=== PATIENT | male | born 1945 | race Caucasian/White ===

== ENCOUNTER → 2019-11-25 16:41 | Outpatient (REF) | payer MEDICARE, SELFPAY | LOC: ANHLAB 16:41 | PROVIDERS: PCP Family Medicine; Visit Provider Nurse Practitioner Family | DX: C44.519 Basal cell carcinoma of skin of other part of trunk (principal) | CPT/HCPCS: 88305 ==

== ENCOUNTER → 2020-06-07 12:02 | Outpatient (REF) | payer MEDICARE, SELFPAY | LOC: ANHLAB 12:02 | PROVIDERS: PCP Family Medicine; Visit Provider Nurse Practitioner | DX: C44.319 Basal cell carcinoma of skin of other parts of face (principal) | CPT/HCPCS: 88305 ==

== ENCOUNTER → 2020-07-25 11:43 | Outpatient (REF) | payer MEDICARE, SELFPAY | LOC: ANHLAB 11:43 | PROVIDERS: PCP Family Medicine; Visit Provider Nurse Practitioner | DX: C44.319 Basal cell carcinoma of skin of other parts of face (principal) | CPT/HCPCS: 88305; 88331 ==

== ENCOUNTER → 2021-06-01 13:42 | Outpatient (REF) | payer MEDICARE, SELFPAY | LOC: ANHLAB 13:42 | PROVIDERS: PCP Family Medicine; Visit Provider Nurse Practitioner | DX: C44.219 Basal cell carcinoma of skin of left ear and external auricular canal (principal) | CPT/HCPCS: 88305 ==

== ENCOUNTER → 2021-07-10 10:30 | Outpatient (REF) | payer MEDICARE, SELFPAY | LOC: ANHLAB 10:30 | PROVIDERS: PCP Family Medicine; Visit Provider Nurse Practitioner | DX: C44.219 Basal cell carcinoma of skin of left ear and external auricular canal (principal) | CPT/HCPCS: 88305; 88331 ==

== ENCOUNTER → 2021-11-30 12:04 | Outpatient (REF) | payer MEDICARE, SELFPAY | LOC: ANHLAB 12:04 | PROVIDERS: PCP Family Medicine; Visit Provider Nurse Practitioner | DX: C44.519 Basal cell carcinoma of skin of other part of trunk (principal) | CPT/HCPCS: 88305 ==

== ENCOUNTER → 2022-01-29 10:11 | Outpatient (REF) | payer MEDICARE, SELFPAY | LOC: ANHLAB 10:11 | PROVIDERS: PCP Family Medicine; Visit Provider Nurse Practitioner | DX: C44.529 Squamous cell carcinoma of skin of other part of trunk (principal) | CPT/HCPCS: 88305; 88331 ==

== ENCOUNTER 2023-06-10 01:47 | Day surgery (SDC) | payer MEDICARE, SELFPAY ==
[2023-05-24 14:34] VITALS: BMI 28.8
--- NOTE | 2023-06-07 10:41 | SUR.PREOP ---
Patient called regarding upcoming procedure. Reviewed preop instructions, appointment times, and procedure prep.
[2023-06-10 13:05] VITALS: BP 125/70; PULSE 77; RESP 16; TEMP 36.6; O2SAT 98; BMI 27.4
[2023-06-10] MEDS: LACTATED RINGERS 1,000 ML 150 ML IV CONT (13:40)
--- NOTE | 2023-06-10 13:43 | PM.HPGS ---
History of Present Illness History of Present Illness Consent: Risks, benefits, and alternatives have been discussed and questions answered. Patient agrees to proceed with procedure. Chief complaint: Hx colon polyps Narrative: Ashu Motta is a 77 year old male referred for colon cancer screening. Review of Systems Review of Systems: All systems reviewed & are unremarkable except as noted in HPI and below PMFSH Past Medical History Medical History Elevated prostate specific antigen (PSA) History of basal cell carcinoma of skin 04/2017 Hyperlipidemia Hypertension Prediabetes Surgical History Surgical History H/O vasectomy 05/1979 History of Mohs micrographic surgery for skin cancer Family History Family History Mother Cancer Grandparent Diabetes mellitus Heart disease Social History Social History Smoking status: Never smoker Tobacco type: pipe Alcohol intake: current Drinks per week: 14 Substance use type: does not use Living arrangements: other Additional living arrangements comments: with sp Meds Home Medications and Allergies Home Medications Medication Instructions Recorded Confirmed Type lisinopril 10 mg tablet 10 mg PO DAILY 07/08/19 06/10/23 History simvastatin 40 mg tablet 40 mg PO DAILY 07/08/19 06/10/23 History aspirin 81 mg tablet,delayed 81 mg PO DAILY #30 tabs 04/02/23 06/10/23 Rx release tjpunwya-sav-dggpw acid 0.4 1 tablet PO DAILY #30 tabs 04/02/23 06/10/23 Rx mg-lycopene 300 mcg-lutein 250 mcg tablet (Complete Multivitamin Adult 50 Plus) omega 3-hww-keb-fish oil 1,200 mg 1 cap PO .twice daily #60 caps 04/02/23 06/10/23 Rx (144 mg-216 mg) capsule (Fish Oil) psyllium husk 0.4 gram capsule 0.4 g PO DAILY #60 caps 04/02/23 06/10/23 Rx (Metamucil) Allergies Allergy/AdvReac Type Severity Reaction Status Date / Time No Known Allergies Allergy Mild Verified 06/10/23 13:13 Vital Signs Vital Signs - 24 hr 06/10/23 13:05 Temperature 36.6 C Pulse Rate 77 Respiratory Rate 16 Blood Pressure 125/70 Pulse Oximetry 98 Oxygen Delivery Room Air Exam Resp: Auscultation: clear to auscultation bilaterally Cardio: Rate: regular rate Rhythm: regular rhythm GI: GI Palp: Yes Soft to palpation and No Tenderness to palpation present (GI) Assessment and Plan Assessment and plan (1) Colon cancer screening: Code(s): Z12.11 - Encounter for screening for malignant neoplasm of colon Status: Acute Assessment and Plan: Colonoscopy with possible biopsy or polypectomy or cautery or injection of substances.
--- NOTE | 2023-06-10 13:44 | P.PNAN_ITS ---
Anes - Initial Pre Proc Eval Procedure: Operation Date: 06/10/23 14:30 Proposed Procedures p Colonoscopy - Sedrick Hilliard MD Date/Time: 06/10/23 13:44 Surgeon: Sedrick Hilliard MD Pre Op Diagnosis: Hx colon polyps Patient Data Age: 77 Gender: M Height: 1.78 m Weight: 86.8 kg Last Vital Signs Temp 97.9 F 06/10/23 13:05 Pulse 77 06/10/23 13:05 Resp 16 06/10/23 13:05 BP 125/70 06/10/23 13:05 Pulse Ox 98 06/10/23 13:05 O2 Del Method Room Air 06/10/23 13:05 Allergies Allergy/AdvReac Type Severity Reaction Status Date / Time No Known Allergies Allergy Mild Verified 06/10/23 13:13 Home Medications Medication Instructions Recorded Confirmed Type lisinopril 10 mg tablet 10 mg PO DAILY 07/08/19 06/10/23 History simvastatin 40 mg tablet 40 mg PO DAILY 07/08/19 06/10/23 History aspirin 81 mg tablet,delayed 81 mg PO DAILY #30 tabs 04/02/23 06/10/23 Rx release szhttabv-deb-gxjcg acid 0.4 1 tablet PO DAILY #30 tabs 04/02/23 06/10/23 Rx mg-lycopene 300 mcg-lutein 250 mcg tablet (Complete Multivitamin Adult 50 Plus) omega 3-gem-aag-fish oil 1,200 mg 1 cap PO .twice daily #60 caps 04/02/23 06/10/23 Rx (144 mg-216 mg) capsule (Fish Oil) psyllium husk 0.4 gram capsule 0.4 g PO DAILY #60 caps 04/02/23 06/10/23 Rx (Metamucil) Patient hx anesthesia problems: none Family hx anesthesia problems: none Results Review: All pre-operative results and documents have been reviewed as part of the pre- operative evaluation. [facility] Past Medical History Medical History Elevated prostate specific antigen (PSA) History of basal cell carcinoma of skin 04/2017 Hyperlipidemia Hypertension Prediabetes Surgical History Surgical History H/O vasectomy 05/1979 History of Mohs micrographic surgery for skin cancer Family History Family History Mother Cancer Grandparent Diabetes mellitus Heart disease Social History Social History Smoking status: Never smoker Tobacco type: pipe Alcohol intake: current Drinks per week: 14 Substance use type: does not use Living arrangements: other Additional living arrangements comments: with amrit Miguel Final PreProcedure Day of Procedure 06/10/23 13:44 Patient weight: normal Heart: regular rate and rhythm Lungs: clear to auscultation Airway: Mallampati scale Neurological: alert and oriented Last oral intake: >/= 8 hours ASA classification: II Emergent: no Anesthetic plan: proceed Anesthesia type and monitoring: general GIVS and standard monitoring Results Review: All pre-operative results and documents have been reviewed as part of the pre- operative evaluation. Informed Consent: The patient's anesthetic plan and its attendant risks and benefits were discussed with the patient/family/POA. Questions were solicited and answers provided to the satisfaction of the patient/family/POA.
--- NOTE | 2023-06-10 14:07 | SUR.OPER ---
1356 abrasion noted to right knee pre operatively
[2023-06-10 14:22] VITALS: BP 91/59; PULSE 68; RESP 15; O2SAT 96
[2023-06-10 14:32] VITALS: BP 102/69; PULSE 68; RESP 20; O2SAT 96
[2023-06-10 14:42] VITALS: BP 119/77; PULSE 68; RESP 18; O2SAT 97
--- NOTE | 2023-06-10 15:12 | SUR.PHASEII ---
Discharge delayed due to patient slow to get dressed. Patient delayed discharge.
== END 2023-06-10 15:11 | disposition home or self-care (01) ==
PROVIDERS: PCP Family Medicine; Visit Provider Internal Medicine Gastroenterology
PROC: 0DJD8ZZ Inspection of Lower Intestinal Tract, Via Natural or Artificial Opening Endoscopic (ICD-10-PCS; CPT 45378; principal; 2023-06-10 14:30)
DX: Z12.11 Encounter for screening for malignant neoplasm of colon (principal); E78.5 Hyperlipidemia, unspecified; I10 Essential (primary) hypertension; R73.03 Prediabetes; Z79.82 Long term (current) use of aspirin; Z86.010 Personal history of colon polyps; Z85.828 Personal history of other malignant neoplasm of skin; Z80.9 Family history of malignant neoplasm, unspecified; Z82.49 Family history of ischemic heart disease and other diseases of the circulatory system
CPT/HCPCS: G0105; J2704; J7120

== ENCOUNTER 2025-01-20 15:29 | Emergency (ER) | payer MEDICARE, SELFPAY ==
--- NOTE | ~2025-01-20 | XR_ITS ---
XR ribs RT 2V Ordering provider: Jg Trejo APRN History: . right anterior lateral rib pain- just below axilla-post fall . Comparison: None. FINDINGS: BONES: No acute right rib fracture or fracture of the visualized osseous structures. Degenerative changes of the spine. LUNGS: No effusions or infiltrates. No pneumothorax. SOFT TISSUES: Normal. IMPRESSION: No right rib fracture (Note: subtle/nondisplaced rib fractures can be occult on plain films and if th ere is continued clinical suspicion for rib fracture, recommend follow up CT chest). Reviewed, dictated and finalized at location A. IMPRESSION: No right rib fracture (Note: subtle/nondisplaced rib fractures can be occult on plain films and if there is continued clinical suspicion for rib fracture, rec ommend follow up CT chest).
--- NOTE | 2025-01-20 15:31 | ED.CHESTPAIN ---
HPI - Chest Pain General Chief Complaint: Unspecified Stated Complaint: Right Side Flank Pain Time Seen by Provider: 01/20/25 15:31 Source: patient Mode of arrival: ambulatory Limitations: no limitations History of Present Illness HPI narrative: Ashu is a 79-year-old male patient presenting to the clinic today with complaints of right anterior lateral rib pain x 4 days. He reports symptoms started after he was doing some pull down bar weights. Pain with coughing, taking deep breaths, and sneezing. No known injury otherwise. Denies SOB. Is concerned about a rib fracture. Related Data Home Medications ?Medication ?Instructions ?Recorded ?Confirmed ?Last Taken ?Type mirabegron 25 mg tablet,extended 25 mg PO DAILY 11/24/24 11/24/24 Unknown History release 24 hr (Myrbetriq) Allergies Allergy/AdvReac Type Severity Reaction Status Date / Time No Known Allergies Allergy Mild Verified 01/20/25 15:37 Review of Systems Review of Systems: Pertinent positives per HPI. Patient denies any fever, chills, rash, headache, visual changes, dizziness, cough, runny nose, sore throat, shortness of breath, palpitations, nausea, vomiting, diarrhea, constipation, abdominal pain, or any urinary issues. [facility] Past Medical History Medical History Elevated prostate specific antigen (PSA) Prediabetes Hyperlipidemia Hypertension History of basal cell carcinoma of skin 04/2017 Surgical History Surgical History History of Mohs micrographic surgery for skin cancer H/O vasectomy 05/1979 Family History Family History Mother Cancer Grandparent Diabetes mellitus Heart disease Social History Social History Smoking status: Never smoker Tobacco type: pipe Alcohol intake: current Drinks per week: 14 Substance use: never Substance use type: does not use Lack of Transportation: No Lack of Food: Never True Current Housing: I Have Housing Concerned About Future Housing: No Difficulty Paying Gas/Electric Bills: No Currently Unemployed: No Education: High School Diploma/GED Difficulty w/ Childcare or Family Care: No Living arrangements: with family Additional living arrangements comments: with sp Occupation/Education: retired Gender identity (if verbalized by the patient): Male Sexual Orientation (if Verbalized by the Patient): Straight or Heterosexual Spiritual care concerns: No Comments At the time of my signature, I reviewed and agree with the nursing past medical, surgical, social, and family history. There is no relevant family history pertinent to the patient complaint. Exam Narrative: General: Well-developed, well nourished, in no apparent distress Head: Normocephalic, atraumatic. Chest wall: Even rise and fall of the chest wall with respirations, tender to palpation over the right anterior lateral rib just below the axilla, no bruising, swelling, or rash noted Cardio: Regular rate and rhythm, s1 and s2 normal, no murmur appreciated. Resp: Clear to auscultation bilaterally, no rhonchi, rales, wheezing or rubs. Extremities: No deformity, no edema, no cyanosis, capillary refill less than 2 seconds, peripheral pulses palpable and strong. Integumentary: [place], warm, and dry, intact without lesion, no rashes. Course Course Emergency Course: Portions of this record may have been created with voice recognition software. Level of Care: [facility] Visit Vital Signs Vital signs: Vital Signs Temperature 36.7 C 01/20/25 15:35 Pulse Rate 80 01/20/25 15:35 Respiratory Rate 16 01/20/25 15:35 Blood Pressure 128/96 H 01/20/25 15:35 Pulse Oximetry 99 01/20/25 15:35 Temperature 36.7 C 01/20/25 15:35 Pulse Rate 80 01/20/25 15:35 Respiratory Rate 16 01/20/25 15:35 Blood Pressure 128/96 H 01/20/25 15:35 Pulse Oximetry 99 01/20/25 15:35 Vital signs reviewed MDM - Chest Pain MDM Narrative Medical decision making narrative: At the time of visit patient is resting comfortably on the exam table. Patient appears to be nontoxic. Unfortunately we do not have a x-ray capabilities at the clinic today. Report was called to Elda ROSARIO at [facility] and report was given for continuity of care. Patient agrees to go to [facility] for x-ray Diagnostics: Right rib x-ray was negative for any sign of fracture or malalignment. No sign of pneumonia or pneumothorax. Plan: I suspect patient has a right chest wall strain. Supportive measures were discussed with the patient and they voiced understanding discharge instructions and agrees to treatment plan. Return precautions reviewed Differential Diagnosis Differential diagnosis: Likely fracture of rib, pneumothorax, atypical chest pain, costochondritis and other (Chest muscle strain) Imaging Data Radiologist's impression: ITS Impressions Ribs X-Ray 01/20/25 16:26 IMPRESSION: No right rib fracture (Note: subtle/nondisplaced rib fractures can be occult on plain films and if there is continued clinical suspicion for rib fracture, recommend follow up CT chest). Discharge Plan Discharge Clinical Impression: Muscle strain of anterior chest wall Patient Disposition: Home Condition: Stable Instructions: Antibiotic Form, Chest Wall Pain (ED) Additional Instructions: Right rib x-rays negative for any sign of fracture or malalignment. No sign of pneumonia or pneumothorax. Rest and ice May splint the area when coughing, sneezing, or taking deep breaths using your hand or a pillow. Tylenol/motrin for pain as discussed. Follow up with your PCP if symptoms persist more than 1 week. Patient Language: Indian Prescriptions: No Action psyllium husk [Metamucil] 0.4 gram capsule 0.4 g PO DAILY Qty: 60 0RF aspirin 81 mg tablet,delayed release (DR/EC) 81 mg PO DAILY Qty: 30 0RF omega 1-vkl-vpi-fish oil [Fish Oil] 1,200 (144-216) mg capsule 1 cap PO .twice daily Qty: 60 0RF Complete MV Adult 50 Plus 0.4 mg-300 mcg- 250 mcg tablet 1 tablet PO DAILY Qty: 30 0RF mirabegron [Myrbetriq] 25 mg tablet extended release 24 hr 25 mg PO DAILY lisinopril 10 mg tablet See Rx Instructions .ROUTE .COMPLEX Qty: 90 2RF Dose Instruction: Take 1 tablet by mouth once daily Rx Instructions: Take 1 tablet by mouth once daily simvastatin 40 mg tablet 40 mg PO DAILY Qty: 90 2RF Follow-up/Referrals: Anirudh Colón MD [Primary Care Provider] - Time of Disposition: 16:38 Quality NIHSS Nursing Documentation ED NIHSS nursing documentation: reviewed/agree
[2025-01-20 15:35] VITALS: BP 128/96; PULSE 80; RESP 16; TEMP 36.7; O2SAT 99
== END 2025-01-20 16:41 | disposition home or self-care (01) ==
PROVIDERS: Emergency Provider Nurse Practitioner Family; PCP Family Medicine
DX: S29.011A Strain of muscle and tendon of front wall of thorax, initial encounter (principal); X50.0XXA Overexertion from strenuous movement or load, initial encounter; I10 Essential (primary) hypertension; E78.5 Hyperlipidemia, unspecified; R73.03 Prediabetes; Z85.828 Personal history of other malignant neoplasm of skin; Z98.52 Vasectomy status
CPT/HCPCS: 71100; 99213; G0463